=== PATIENT | male | born 1960 | race Caucasian/White ===

== ENCOUNTER 2021-10-04 07:26 | Day surgery (SDC) | payer BC ==
[2021-09-29 09:37] LABS: Absolute Lymphocytes (CBC) 1.1 K/uL (0.7-4.9); Basophils % 0.4 % (0-1.3); Hematocrit 41.1 % (39.6-49.0); MPV 6.8 fL (7.6-11.3); RBC Red Blood Cell Count 4.22 M/uL (4.33-5.43)
--- NOTE | 2021-09-29 09:41 | RAD REPORT ---
EXAM DESCRIPTION: Nick Noriega (2 Views)09/29/2021 9:36 am CLINICAL HISTORY: Preop for hernia repair. Hypertension COMPARISON: 2009 FINDINGS: The lungs appear clear of acute infiltrate. The heart is normal size IMPRESSION: No acute abnormalities displayed
[2021-09-29 09:54] LABS: Potassium 4.2 mmol/L (3.5-5.1)
[2021-09-29 11:23] LABS: Blood Morphology Comment NOT SEEN (NOT SEEN); Platelet Estimate DECR; White Blood Cell Scan OK (OK)
--- NOTE | 2021-09-29 13:11 | EKG ---
Test Date: 2021-09-29 Test Time: 08:11:29 Chief Librarian Branch: [facility] MEASUREMENT RESULTS: Intervals: Rate: 73 NM: 120 QRSD: 82 QT: 390 QTc: 429 [place]: P: 61 NM: 120 QRS: 42 T: -4 INTERPRETIVE STATEMENTS: Normal sinus rhythm Nonspecific T wave abnormality Abnormal ECG Compared to ECG 12/29/2009 23:05:02 T-wave abnormality now present Sinus bradycardia no longer present Myocardial infarct finding no longer present Electronically Signed On 09-29-21 13:10:16 CDT by Spencer Andino
[2021-10-04] MEDS ORDERED: Ringers Lactate 1,000 ML IV ONE (07:38)
[2021-10-04] MEDS ORDERED: CEFAZOLIN/NS 1gm 1 GM/50 ML BAG ONE (07:38)
[2021-10-04] MEDS ORDERED: LIDOCAINE 2% MPF 5 ML VIAL ONE (08:08)
[2021-10-04] MEDS ORDERED: propofoL 200 MG/20 ML VIAL IV ONE (08:08)
[2021-10-04] MEDS ORDERED: dexAMETHasone 10 MG/ML VIAL ONE ×2 (08:08→08:54)
[2021-10-04] MEDS ORDERED: KETOROLAC 30 MG/ML INJ ONE (08:08)
[2021-10-04] MEDS ORDERED: FENTANYL CITR 100 MCG/2 ML ONE (08:08)
[2021-10-04] MEDS ORDERED: ONDANSETRON 4 MG/2 ML VIAL ONE (08:09)
[2021-10-04] MEDS ORDERED: MIDAZOLAM HCL 2 MG/2 ML INJ ONE (08:09)
[2021-10-04] MEDS ORDERED: ROCURONIUM 50 MG/5 ML VIAL IV ONE (08:10)
[2021-10-04] MEDS ORDERED: BUPIVACAINE 0.5% PF 10 ML VIAL ONE ×2 (08:17→09:14)
[2021-10-04] MEDS ORDERED: BUPIVACAINE 0.25% PF 10 ML VIAL ONE (08:54)
[2021-10-04] MEDS ORDERED: NS 0.9% VIAL 10 ML ONE (08:57)
--- NOTE | 2021-10-04 09:24 | P.BOP ---
Preoperative diagnosis: incarcerated right inguinal hernia Postoperative diagnosis: same Primary procedure: Laparoscopic repair of incarcerated right inguinal hernia Ac/Dc Rewinder: AARON DUNNE ([employer]) Estimated blood loss: <10cc Specimen: none Findings: RIH Anesthesia: General Complications: None Implants: medium 3D mesh Transferred to: Recovery Room Condition: Good
[2021-10-04 09:55] VITALS: O2SAT 100
[2021-10-04 10:09] VITALS: TEMP 97.3
[2021-10-04 10:21] VITALS: BP 158/90
[2021-10-04] MEDS ORDERED: TRAMADOL 37.5mg/APAP 325mg PER TAB ONE (10:40)
== END 2021-10-04 10:54 | disposition home or self-care (01) ==
LOC: OR 07:26
PROVIDERS: ATTEND Surgery
PROC: 0YU54JZ Supplement Right Inguinal Region with Synthetic Substitute, Percutaneous Endoscopic Approach (ICD-10-PCS; principal; 2021-10-04 08:30)
DX: K40.30 Unilateral inguinal hernia, with obstruction, without gangrene, not specified as recurrent (principal); Z20.822 Contact with and (suspected) exposure to COVID-19
CPT/HCPCS: 93005; 85025; 80048; 36415; 71046; 49650; U0002; J2704; J2250; J3010; J1100 ×2; J0690; J7120; J2405

== ENCOUNTER 2024-10-22 20:41 | Observation (INO) | payer BC, OTHER ==
--- OUTSIDE RECORDS SUMMARY | 2024-10-22 20:45 | XMS REPORT | Clinical Summary ---
Author Name Unknown Organization [facility] Address [address] [place] [address] Care Team Providers Care City Maintenance Manager Name Role Phone Pant Svitlana Nogueira MD Unavailable Lydia Randall MD Primary Care Prov ider Juana HAYDEN MD, Jose Alberto Rm Unavailable [phone] Cindy Nj MD Unavailable [phone] Allergies Active Allergy Reactions Criticality Noted Date Comments Iodine Hives Low 04/27/2016 Itch and lip swelling Morphine Other (See Comments) Low 04/27/2016 Hallucinations Medications ibuprofen (ADVIL,MOTRIN) 200 mg tablet Take 2 tablets (400 mg) by mouth as needed. Active green tea leaf extract (Green Tea) 250 mg cap Take 1 capsule by mouth daily. Active omega 7-ukb-yrs-fish oil (Fish OiL) 1,000 mg (120 mg-180 mg) cap Take by mouth. Active tamsulosin (FLOMAX) 0.4 mg 24 hr capsuleIndicati ons:Benign prostatic hyperplasia TAKE 1 CAPSULE(0.4 MG) BY MOUTH DAILY 30 capsule 2 4 Active losartan (COZAAR) 25 mg tablet Take 1 tablet (25 mg) by mouth daily. 1 024 Discontinued multivit-minera ls/FA/lycopene (ONE-A-DAY MEN'S ORAL) Take by mouth daily. 024 Discontinued tamsulosin (FLOMAX) 0.4 mg 24 hr capsuleIndicati ons:Benign prostatic hyperplasia TAKE 1 CAPSULE(0.4 MG) BY MOUTH DAILY 30 capsule 2 3 023 Discontinued tamsulosin (FLOMAX) 0.4 mg 24 hr capsuleIndicati ons:Benign prostatic hyperplasia TAKE 1 CAPSULE(0.4 MG) BY MOUTH DAILY 30 capsule 2 3 024 Discontinued tamsulosin (FLOMAX) 0.4 mg 24 hr capsuleIndicati ons:Benign prostatic hyperplasia TAKE 1 CAPSULE(0.4 MG) BY MOUTH DAILY 30 capsule 2 4 024 Discontinued Active Problems Problem Noted Date Diagnosed Date Hairy cell leukemia 12/26/2022 Hairy cell leukemia (clinical) 01/12/2022 Encounters Date Type Department Care Team Description 06/07/2024 Refill [facility] [address] [place] [address], 8th Floor [place] [address] Natalie Horner PA Benign prostatic hyperplasia 05/13/2024 2:32 PM CDT - 05/13/2024 11:59 PM CDT Hospital Encounter [facility] [address] [place] [address], 2nd [place] [address] Lydia Randall MD Discharge Disposition: Home 05/13/2024 1:00 PM CDT Follow-Up Leukemia Center [address] [place] [address], 8th Floor [place] [address] Lydia Randall MD Hairy cell leukemia 05/13/2024 10:00 AM CDT - 05/13/2024 2:31 PM CDT Hospital Encounter Leukemia Center - [address], 8th [place] [address] Natalie Horner PA Hairy cell leukemia Discharge Disposition: Home 05/13/2024 9:30 AM CDT Consult [facility] - Dermatology [facility] Main Bldg, 9th [place] [address] Cindy Nj MD Multiple actinic keratoses (Primary Dx); Melanocytic nevus of trunk; Seborrheic keratosis; Hemangioma of skin and subcutaneous tissue 05/13/2024 Travel 02/21/2024 Orders Only Leukemia Center [address] [facility] Main Bldg, 8th [place] [address] Natalie Horner PA Hereditary hemochromatosis (Primary Dx); Hairy cell leukemia 02/21/2024 Refill Leukemia Center [address] [facility] Main Bldg, 8th [place] [address] Natalie Horner PA Benign prostatic hyperplasia 11/29/2023 Orders Only Leukemia Center [address] [facility] Main dg, 8th [place] [address] Lydia Randall MD 10/24/2023 Refill Leukemia Center [address] [facility] Main Bldg, 8th Floor [place] [address] Natalie Horner PA Benign prostatic hyperplasia after 10/23/2023 Immunizations Name Administration Dates Next Due Moderna SARS-CoV-2 Vaccination 11/25/2021,2020,02/12/2021 Zoster Recombinant 09/28/2022,08/12/2022 Surgical History Surgery Date Site/Laterality Comments COLONOSCOPY 11/27/2019 - 11/26/2020 5 polyps HERNIA REPAIR 09/27/2021 - 10/26/2021 inguinal Medical History Medical History Date Comments Hyperlipidemia 2000 Hearing loss 2010 both ear, left w orse than right Fatty liver 2021 Arthritis 2010 Family History Medical History Relation Name Comments Brain cancer Brother Lung cancer Father Adam Contreras Relation Name Status Comments Brother Alive Father Adam Contreras Social History Tobacco Use Types Packs/Day Years Used Date Smoking Tobacco: Never Smokeless Tobacco: Former Snuff, Chew Quit: 11/27/1991 Tobacco Cessation:Counseling Given: Not Answered Comments:Started at very young age. Quit around 27 y.o. Alcohol Use Standard Drinks/Week Comments Not Currently 0 (1 standard drink = 0.6 oz pur e alcohol) Social drinks Sex and Gender Information Value Date Recorded Sex Assigned at Not on file Legal Sex Male 8:51 AM [employer]NER [employer]UT[employer] Gender Identity Not on file Sexual Orientation Not on file Occupation Industry Job Start Date Job End Date [employer] Not on file Not on file Not on file Obstetrics History Last Filed Vital Signs Vital Sign Reading Time Taken Comments Blood Pressure 126/85 05/13/2024 9:16 AM CDT Pulse 89 05/13/2024 9:16 AM CDT Temperature - - Respiratory Rate 18 05/13/2024 9:16 AM CDT Oxygen Saturation 96% 05/13/2024 9:16 AM CDT Inhaled Oxygen Concentration - - Weight 95 kg (209 lb 7 oz) 05/13/2024 9:16 AM CD T Height 172.7 cm (5' 8") 05/13/2024 9:16 AM CDT Body Mass Index 31.84 05/13/2024 9:16 AM CDT Plan of Treatment Upcoming Encounters Date Type Department Care Team (Late st Contact Info) Description 05/12/2025 10:30 AM CDT Follow-Up [facility] - Dermatology [address] [place] [address], 9th [place] [address] Cindy Nj MD [address] [place] [phone] [email or web address] 05/12/2025 11:30 AM CDT Appointment Diagnostic [facility] Center [address] [place] [address] Main [facility], [place] [address] Natalie Horner PA [address] [place] [phone] [email or web address] 05/12/2025 1:00 PM CDT Follow-Up Leukemia Center [address] [place] [address], 8th [place] [address] Lydia Randall MD [facility] [place] [address] [email or web address] Health Maintenance Due Date Last Done Comments Pneumococcal Vaccine: Pediat rics (0 to 5 Years) and At-Risk Patients (6 to 64 Years) (1 of 2 - PCV) 1968 COVID-19 Vaccine ( season) 2024 11/25/2021, 03/12/2021, 02/12/2021 Influenza Vaccine (#1) 2024 Procedures Procedure Name Priority Date/Time Associated Diagnosis Comments HISTORICAL ABORH Routine 05/13/2024 11:3 1 AM CDT Hairy cell leukemia FERRITIN Add-On 05/13/2024 10:26 AM CDT Hairy cell leukemia IRON LEVEL Add-On 05/13/2024 10:26 AM CDT Hairy cell leukemia TRANSFERRIN Add-On 05/13/2024 10:26 AM CDT Hairy cell leukemia .CBC Routine 05/13/2024 10:26 AM CDT Hairy cell leukemia COMPLETE BLOOD COUNT W/ DIFFERENTIAL Routine 05/13/2024 10:26 AM CDT Hairy cell leukemia TYPE AND SCREEN Routine 05/13/2024 10:26 AM CDT Hairy cell leukemia INTERLEUKIN 2 RECEPTOR (IL2R) Routine 05/13/2024 10:26 AM CDT Hairy cell leukemia IMMUNOGLOBULIN G Routine 05/13/2024 10:2 6 AM CDT Hairy cell leukemia IMMUNOGLOBULIN M Routine 05/13/2024 10:2 6 AM CDT Hairy cell leukemia IMMUNOGLOBULIN A Routine 05/13/2024 10:2 6 AM CDT Hairy cell leukemia MAGNESIUM LEVEL Routine 05/13/2024 10:26 AM CDT Hairy cell leukemia ELECTROLYTE PANEL Routine 05/13/2024 10: 26 AM CDT Hairy cell leukemia ALANINE AMINOTRANSFERASE Routine 024 10:26 AM CDT Hairy cell leukemia LACTATE DEHYDROGENASE Routine 05/13/2024 10:26 AM CDT Hairy cell leukemia ALKALINE PHOSPHATASE Routine 05/13/2024 10:26 AM CDT Hairy cell leukemia FRACTIONATED BILIRUBIN Routine 10:26 AM CDT Hairy cell leukemia URIC ACID Routine 05/13/2024 10:26 AM CDT Hairy cell leukemia CREATININE Routine 05/13/2024 10:26 AM CDT Hairy cell leukemia BLOOD UREA NITROGEN Routine 05/13/2024 1 0:26 AM CDT Hairy cell leukemia GLUCOSE, RANDOM Routine 05/13/2024 10:26 AM CDT Hairy cell leukemia PHOSPHORUS LEVEL Routine 05/13/2024 10:2 6 AM CDT Hairy cell leukemia CALCIUM LEVEL Routine 05/13/2024 10:26 AM CDT Hairy cell leukemia ALBUMIN LEVEL Routine 05/13/2024 10:26 AM CDT Hairy cell leukemia TOTAL PROTEIN Routine 05/13/2024 10:26 AM CDT Hairy cell leukemia after 10/23/2023 Results * Historical ABORh (05/13/2024 11:31 AM CDT) ABORh AB POS 05/13/2024 11:32 AM CDT [facility] Blood Peripheral blood specimen / Unknown 05/13/2024 11:31 AM CDT 05/13/2024 11:31 AM CDT Natalie MESSER BLOOD BANK TEST ORDERABLES Fin al Result [facility] [address] [place] [address] [id number] [place] [address] * Glucose, Random (05/13/2024 10:26 AM CDT) Glucose Random 111 70 - 199 mg/dL 05/13/2024 11:28 AM CDT [facility] Blood Venipuncture / Unknown 05/13/2024 10:26 AM CDT 05/13/2024 10:42 AM CDT Narrative [facility] - 05/13/2024 11:28 AM CDT Effective 06/22/16, the glucose reference intervals have been updated based on [place] Diabetes [employer] guidelines (Standards of Medical Care in Diabetes 2016. Diabetes Care 2016; 39: S13-S22). Fasting blood glucose: Normal: 70-99 mg/dL Impaired fasting glucose (increased risk for diabetes or pre-diabetes): 100-125 mg/dL Diabetes mellitus: >/=126 mg/dL Random blood glucose: Normal: 70-199 mg/dL Note: Random glucose >100 mg/dL is associated with increased risk for diabetes Natalie MESSER LAB BLOOD ORDERABLES Final Res ult [facility] Unless otherwise noted, all lab tests performed by: Division of Pathology and Laboratory Medicine [address] [place] [phone] * .CBC (05/13/2024 10:26 AM CDT) White Blood Cell 6.2 4.1 - 10.5 K/uL 05/13/2024 11:05 AM CDT [facility] Red Blood Cell 4.91 4.30 - 6.04 M/uL 05/13/2024 11:05 AM [facility] Hemoglobin 15.3 13.3 - 17.4 g/dL 05/13/2024 11:05 AM [facility] Hematocrit 44.4 39.5 - 51.8 % 05/13/2024 11:05 AM [facility] Mean Cell Volume 90 82 - 99 fL 05/13/20 11:05 AM [facility] Mean Cell Hemoglobin 31.2 26.6 - 33.2 pg 05/13/2024 11:05 AM [facility] Mean Cell Hemoglobin Concentration 34.5 31.1 - 35.2 g/dL 05/13/2024 11:05 AM [facility] RDW-SD 39.9 37.5 - 49.7 fL 05/13/2024 11:05 AM [facility] Red Cell Diameter Width 12.2 11.6 - 15.5 % 05/13/2024 11:05 AM [facility] Platelet 171 160 - 397 K/uL 05/13/2024 11:05 AM [facility] Mean Platelet Volume 9.3 9.1 - 12.6 fL 05/13/2024 11:05 AM [facility] INRBC 0.0 0.0 - 0.1 /100 WBC 05/13/2024 11:05 AM [facility] Comment: The INRBC (instrument NRBC) value reflects the enumeration of nucleated red blood cells contained in a 200uL sample of whole blood analyzed by the instrument. This value may differ from the NRBC value reported in a manual differential, which is based on a 100 cell differential. Neutrophil % 60.9 43.2 - 72.7 % 05/13/2024 11:05 AM [facility] Lymphocyte % 25.0 16.8 - 46.2 % 05/13/2024 11:05 AM [facility] Monocyte % 9.8 5.1 - 12.5 % 05/13/2024 11:05 AM [facility] Eosinophil % 3.2 0.4 - 6.3 % 05/13/2024 11:05 AM CDT [facility] Basophil % 0.6 0.2 - 1.4 % 05/13/2024 11:05 AM CDT [facility] IGRE % 0.5 0.1 - 1.5 % 05/13/2024 11:05 AM CDT [facility] Comment:The IGRE% includes M etamyelocytes, Myelocytes and Promyelocytes. Neutrophil Abs 3.77 1.95 - 7.25 K/uL 05/13/2024 11:05 AM CDT [facility] Lymphocyte Abs 1.55 1.01 - 3.24 K/uL 05/13/2024 11:05 AM CDT [facility] Monocyte Abs 0.61 0.24 - 0.85 K/uL 05/13/2024 11:05 AM CDT [facility] Eosinophil Abs 0.20 0.02 - 0.50 K/uL 05/13/2024 11:05 AM CDT [facility] Basophil Abs 0.04 0.02 - 0.09 K/uL 05/13/2024 11:05 AM CDT [facility] IG Abs 0.03 0.01 - 0.12 K/uL 05/13/2024 11:05 AM CDT [facility] Blood Venipuncture / Unknown 05/13/2024 10:26 AM CDT 05/13/2024 10:42 AM CDT us Natalie MESSER LAB BLOOD ORDERABLES Final Res ult [facility] Unless otherwise noted, all lab tests performed by: Division of Pathology and Laboratory Medicine [address] [place] [phone] * Fractionated Bilirubin (05/13/2024 10:26 AM CDT) Bilirubin Direct 0.2 0.0 - 0.3 mg/dL 05/13/2024 11:28 AM CDT [facility] Comment:Indocyanine Green (I CG) may cause falsely elevated bilirubin results. Total and direct bilirubin must not be measured from samples containing indocyanine green. Bilirubin Indirect 0.7 0.0 - 0.9 mg/dL 05/13/2024 11:28 AM CDT [facility] Bilirubin Total 0.9 0.0 - 1.2 mg/dL 05/13/2024 11:28 AM CDT [facility] Comment:Indocyanine Green (I CG) may cause falsely elevated bilirubin results. Total and direct bilirubin must not be measured from samples containing indocyanine green. False elevation of total bilirubin can be seen in patients with IgG concentrations above 28 g/L. Blood Venipuncture / Unknown 05/13/2024 10:26 AM CDT 05/13/2024 10:42 AM CDT Natalie MESSER LAB BLOOD ORDERABLES Final Res ult [facility] Unless otherwise noted, all lab tests performed by: Division of Pathology and Laboratory Medicine [address] [place] [phone] * Interleukin 2 Receptor (05/13/2024 10:26 AM CDT) [facility] [place] 2 Recp(CD25) [facility] 380.9 175.3 - 858.2 pg/mL 05/17/2024 7:55 AM CDT [facility] CINDI Comment: INTERPRETIVE INFORMATION: Cytokines Results are used to understand the pathophysiology of immune, infectious, or inflammatory disorders, or may be used for research purposes. This test was developed and its performance characteristics determined by [facility]. It has not been cleared or approved by the [place] Food and Drug Administration. This test was performed in a CLIA certified laboratory and is intended for clinical purposes. Test Performed by: [facility] [address] [place] [address] Blood Venipuncture / Unknown 05/13/2024 10:26 AM CDT 05/13/2024 10:42 AM CDT Natalie MESSER LAB BLOOD ORDERABLES Final Res ult [facility] CINDI * Type and Screen (05/13/2024 10:26 AM CDT) Pathologist [facility] ABORh AB POS 05/13/2024 10:10 AM CDT [facility] ABSC Negative 05/13/2024 10:10 AM CDT [facility] Clot Expiration 05/16/2024 23:59 05/13/2024 10:10 AM CDT [facility] Historical Record Check Complete 05/13/2024 10:10 AM CDT [facility] Blood Venipuncture / Unknown 05/13/2024 10:26 AM CDT 05/13/2024 10:42 AM CDT us Natalie MESSER BLOOD BANK TEST ORDERABLES Fin al Result [facility] [address] [place] [address] B2.4400 [place] [address] * Uric Acid (05/13/2024 10:26 AM CDT) Uric Acid 6.6 3.4 - 7.0 mg/dL 05/13/2024 11:28 AM CDT [facility] Blood Venipuncture / Unknown 05/13/2024 10:26 AM CDT 05/13/2024 10:42 AM CDT us Natalie MESSER LAB BLOOD ORDERABLES Final Res ult [facility] Unless otherwise noted, all lab tests performed by: Division of Pathology and Laboratory Medicine [address] [place] [phone] * BUN (05/13/2024 10:26 AM CDT) BUN 16 6 - 23 mg/dL 05/13/2024 11:28 AM CDT [facility] Blood Venipuncture / Unknown 05/13/2024 10:26 AM CDT 05/13/2024 10:42 AM CDT us Natalie MESSER LAB BLOOD ORDERABLES Final Res ult [facility] Unless otherwise noted, all lab tests performed by: Division of Pathology and Laboratory Medicine [address] [place] [phone] * Transferrin with TIBC (05/13/2024 10:26 AM CDT) Pathologist [facility] Transferrin 246 200 - 360 mg/dL 05/13/2024 2:12 PM CDT [facility] Total Iron Binding Capacity 344 250 - 450 mcg/dL 05/13/2024 2:12 PM CDT [facility] Blood Venipuncture / Unknown 05/13/2024 10:26 AM CDT 05/13/2024 10:42 AM CDT us Natalie MESSER LAB BLOOD ORDERABLES Final Res ult Performing Organization Address [facility]/ZIP Co de Phone Number [facility] Unless otherwise noted, all lab tests performed by: Division of Pathology and Laboratory Medicine [address] [place] [phone] * Alanine Aminotransferase (05/13/2024 10:26 AM CDT) Pathologist [facility] ALT 36 <=41 U/L 05/13/2024 11:28 AM CDT [facility] Blood Venipuncture / Unknown 05/13/2024 10:26 AM CDT 05/13/2024 10:42 AM CDT us Natalie MESSER LAB BLOOD ORDERABLES Final Res ult [facility] Unless otherwise noted, all lab tests performed by: Division of Pathology and Laboratory Medicine [address] [place] [phone] * Total Protein (05/13/2024 10:26 AM CDT) Pathologist [facility] Tot Protein 6.9 6.4 - 8.3 gm/dL 05/13/2024 11:28 AM CDT [facility] Blood Venipuncture / Unknown 05/13/2024 10:26 AM CDT 05/13/2024 10:42 AM CDT Narrative [facility] - 05/13/2024 11:28 AM CDT Reference range established based on adult population Natalie MESSER LAB BLOOD ORDERABLES Final Res ult [facility] Unless otherwise noted, all lab tests performed by: Division of Pathology and Laboratory Medicine [address] [place] [phone] * Phosphorus Level (05/13/2024 10:26 AM CDT) Phosphorus Level 3.0 2.5 - 4.5 mg/dL 05/13/2024 11:28 AM CDT [facility] Blood Venipuncture / Unknown 05/13/2024 10:26 AM CDT 05/13/2024 10:42 AM CDT Natalie MESSER LAB BLOOD ORDERABLES Final Res ult Performing Organization Address [facility] de Phone Number [facility] Unless otherwise noted, all lab tests performed by: Division of Pathology and Laboratory Medicine [address] [place] [phone] * Alkaline Phosphatase (05/13/2024 10:26 AM CDT) Alkaline Phosphatase 77 40 - 129 U/L 05/13/2024 11:28 AM CDT [facility] Blood Venipuncture / Unknown 05/13/2024 10:26 AM CDT 05/13/2024 10:42 AM CDT Natalie MESSER LAB BLOOD ORDERABLES Final Res ult Performing Organization Address City/[facility] Co de Phone Number [facility] Unless otherwise noted, all lab tests performed by: Division of Pathology and Laboratory Medicine [address] [place] [phone] * Magnesium Level (05/13/2024 10:26 AM CDT) [facility] Magnesium Level 2.2 1.6 - 2.6 mg/dL 05/13/2024 11:28 AM CDT [facility] Blood Venipuncture / Unknown 05/13/2024 10:26 AM CDT 05/13/2024 10:42 AM CDT Natalie MESSER LAB BLOOD ORDERABLES Final Res ult Performing Organization Address [facility] de Phone Number [facility] Unless otherwise noted, all lab tests performed by: Division of Pathology and Laboratory Medicine [address] [place] [phone] * LDH (05/13/2024 10:26 AM CDT) [facility] LDH 185 135 - 225 U/L 05/13/2024 11:38 AM CDT [facility] Blood Venipuncture / Unknown 05/13/2024 10:26 AM CDT 05/13/2024 10:42 AM CDT Narrative [facility] - 05/13/2024 11:38 AM CDT Results greater than 1651 U/L may not be reliable due to matrix effect with extended dilution as it exceeds the avionics systems engineer's recommended limit. Caution should be exercised when interpreting such values and done in conjunction with clinical context. Natalie MESSER LAB BLOOD ORDERABLES Final Res ult Performing Organization Address [facility] de Phone Number [facility] Unless otherwise noted, all lab tests performed by: Division of Pathology and Laboratory Medicine [address] [place] [phone] * Iron Level (05/13/2024 10:26 AM CDT) [facility] Iron Level 119 59 - 158 mcg/dL 05/13/2024 2:12 PM CDT [facility] Is patient fasting? 05/13/2024 2:12 PM CDT [facility] Blood Venipuncture / Unknown 05/13/2024 10:26 AM CDT 05/13/2024 10:42 AM CDT Natalie MESSER LAB BLOOD ORDERABLES Final Res ult Performing Organization Address City/[facility] Co de Phone Number [facility] Unless otherwise noted, all lab tests performed by: Division of Pathology and Laboratory Medicine [address] [place] [phone] * IgA (05/13/2024 10:26 AM CDT) Pathologist [facility] IgA 157.0 85.0 - 499.0 mg/dL 05/13/2024 2:58 PM CDT [facility] Blood Venipuncture / Unknown 05/13/2024 10:26 AM CDT 05/13/2024 10:42 AM CDT Natalie MESSER LAB BLOOD ORDERABLES Final Res ult Performing Organization Address [facility] de Phone Number [facility] Unless otherwise noted, all lab tests performed by: Division of Pathology and Laboratory Medicine [address] [place] [phone] * IgM (05/13/2024 10:26 AM CDT) Pathologist [facility] IgM 103.0 35.0 - 242.0 mg/dL 05/13/2024 2:58 PM CDT [facility] Blood Venipuncture / Unknown 05/13/2024 10:26 AM CDT 05/13/2024 10:42 AM CDT Natalie MESSER LAB BLOOD ORDERABLES Final Res ult Performing Organization Address City/[facility] Co de Phone Number [facility] Unless otherwise noted, all lab tests performed by: Division of Pathology and Laboratory Medicine [address] [place] [phone] * IgG (05/13/2024 10:26 AM CDT) Pathologist [facility] IgG 1,050.0 610.0 - 1,616.0 mg/dL 05/13/2024 2:58 PM CDT [facility] Blood Venipuncture / Unknown 05/13/2024 10:26 AM CDT 05/13/2024 10:42 AM CDT Natalie MESSER LAB BLOOD ORDERABLES Final Res ult [facility] Unless otherwise noted, all lab tests performed by: Division of Pathology and Laboratory Medicine [address] [place] [phone] * Ferritin Level (05/13/2024 10:26 AM CDT) Ferritin Level 248 30 - 400 ng/mL 05/13/2024 2:12 PM CDT [facility] Blood Venipuncture / Unknown 05/13/2024 10:26 AM CDT 05/13/2024 10:42 AM CDT Narrative [facility] - 05/13/2024 2:12 PM CDT Reference range established for age 20 - 60 years us Natalie MESSER LAB BLOOD ORDERABLES Final Res ult Performing Organization Address City/[facility] Co de Phone Number [facility] Unless otherwise noted, all lab tests performed by: Division of Pathology and Laboratory Medicine [address] [place] [id number] * Creatinine (05/13/2024 10:26 AM CDT) Creatinine 0.88 0.67 - 1.17 mg/dL 05/13/2024 11:28 AM CDT [facility] eGFR 98 >=60 mL/min/1.7 3 sq. m 05/13/2024 11:28 AM CDT [facility] Comment: The eGFRcr is calculated with the 2020 CKD-EPI creatinine equation using creatinine, patient's age, and sex for adults 18 years of age and older. Other factors, especially muscle mass, may affect accuracy and need to be considered. According to the Kidney Disease: Improving Global Outcomes (KDIGO) CKD Work Group 2012 Clinical Practice Guideline, chronic kidney disease (CKD) is defined as the abnormalities of kidney structure or function, present for more than 3 months, with implications for health. CKD should be classified by cause, GFR category, and albuminuria category. KDIGO guidelines provide the following GFR categories. Stage / Description / GFR mL/min/1.73 m2: G1* / Normal or high / >= 90 G2* / Mildly decreased / 60-89 G3a / Mildly to moderately decreased / 45-59 G3b / Moderately to severely decreased / 30-44 G4 / Severely decreased / 15-29 G5 / Kidney failure / <15 *In the absence of evidence of kidney damage, neither G1 nor G2 fulfill criteria for CKD. Blood Venipuncture / Unknown 05/13/2024 10:26 AM CDT 05/13/2024 10:42 AM CDT Natalie MESSER LAB BLOOD ORDERABLES Final Res ult Performing Organization Address City/[facility]/ZIP Co de Phone Number [facility] Unless otherwise noted, all lab tests performed by: Division of Pathology and Laboratory Medicine [address] [place] [phone] * Calcium Level (05/13/2024 10:26 AM CDT) Calcium Level Total 9.1 8.2 - 10.2 mg/dL 05/13/2024 11:28 AM CDT [facility] Blood Venipuncture / Unknown 05/13/2024 10:26 AM CDT 05/13/2024 10:42 AM CDT Natalie MESSER LAB BLOOD ORDERABLES Final Res ult [facility] Unless otherwise noted, all lab tests performed by: Division of Pathology and Laboratory Medicine [address] [place] [id number] * Albumin Level (05/13/2024 10:26 AM CDT) Albumin Level 4.2 3.5 - 5.2 gm/dL 05/13/2024 11:28 AM CDT [facility] Blood Venipuncture / Unknown 05/13/2024 10:26 AM CDT 05/13/2024 10:42 AM CDT us Natalie MESSER LAB BLOOD ORDERABLES Final Res ult [facility] Unless otherwise noted, all lab tests performed by: Division of Pathology and Laboratory Medicine [address] [place] [id number] * Electrolyte Panel (05/13/2024 10:26 AM CDT) Sodium Level 138 136 - 145 mmol/L 05/13/2024 11:28 AM CDT [facility] Potassium Level 4.4 3.4 - 4.5 mmol/L 05/13/2024 11:28 AM CDT [facility] Chloride 104 98 - 107 mmol/L 05/13/2024 11:28 AM CDT [facility] CO2 28 22 - 29 mmol/L 05/13/2024 11:28 AM CDT [facility] Anion Gap 6 4 - 14 mmol/L 05/13/2024 11:28 AM CDT [facility] Blood Venipuncture / Unknown 05/13/2024 10:26 AM CDT 05/13/2024 10:42 AM CDT Natalie MESSER LAB BLOOD ORDERABLES Final Res ult Performing Organization Address City/[facility]/ZIP Co de Phone Number [facility] Unless otherwise noted, all lab tests performed by: Division of Pathology and Laboratory Medicine [address] [place] [phone] after 10/23/2023 Insurance BCBS PPO POS OUT OF STATE GENERIC AETNA HMO [facility] PPO POS OUT OF STATE GENERIC AETNA HMO Care Teams City Maintenance Manager Relationship Specialty Start Date End Date Svitlana Ellis MD [address] [address] [email or web address] PCP - External Follow Up A Hematology 12/31/21 Lydia Randall MD [address] [place] [phone] [email or web address] PCP - General Leukemia 12/31/21 Jose Alberto Arias IV, MD [address] [place] [id number] [email or web address] Consulting Physician Urology 08/12/22 Cindy Nj MD [address] [place] [phone] [email or web address] Consulting Physician Dermatology 05/13/24
[2024-10-22 21:26] LABS: Absolute Eosinophils 0.1 K/uL (0-0.5); Absolute Lymphocytes (CBC) 1.1 K/uL (0.7-4.9); Absolute Monocytes 0.2 K/uL (0.1-1.3); Absolute Neutrophil 2.8 K/uL (1.8-8.0); Basophils % 0.5 % (0-1.3); Eosinophils % 3.5 % (0-4.4); Hematocrit 44.3 % (39.6-49.0); Lymphocytes % 25.1 % (15.3-44.8); MCH 30.8 pg (27.0-35.0); MCHC 33.8 g/dL (32.0-36.0); MCV 90.9 fL (80-100); MPV 7.3 fL (7.6-11.3); Monocytes % 5.3 % (3.3-12.3); Neutrophils % 65.6 % (41.7-73.7); Nucleated Red Blood Cells % 0.2 % (0-0); Platelets 175 thou/uL (152-406); RBC Red Blood Cell Count 4.88 M/uL (4.33-5.43); Red Cell Distribution Width 13.2 % (12.1-15.2)
[2024-10-22 21:50] LABS: Anion Gap 9.1 mEq/L (5.0-15.0); Potassium 3.1 mEq/L (3.5-5.1); Troponin High Sensitivity 51.8 pg/mL (<58.9)
--- NOTE | 2024-10-22 21:50 | RAD REPORT ---
Procedure: Chest Single View HISTORY: Chest pain COMPARISON: 2020 FINDINGS: The lungs appear clear of acute infiltrate. No significant pleural effusion noted. The heart is normal size. IMPRESSION: No acute abnormality is displayed.
[2024-10-22] MEDS ORDERED: POTASSIUM CL SA 10 MEQ TAB PO ONE (22:18)
[2024-10-22] MEDS ORDERED: CLOPIDOGREL 75 MG TABLET ONE (23:14)
[2024-10-22] MEDS ORDERED: ASPIRIN 81 MG CHEWABLE TABLET ONE (23:14)
[2024-10-22] MEDS ORDERED: NITROGLYCERIN 1 GM PKT TD ONE (23:14)
--- NOTE | 2024-10-22 23:53 | EDPHYS ---
Physician Documentation [facility] Name: Tevin Contreras Age: 64 yrs Sex: Male : 1960 Arrival Date: 10/22/2024 Time: 20:41 Bed 16 Private MD: ED Physician Orlando Tariq HPI: 10/22 23:03 This 64 yrs old Male presents to ER via Ambulatory with complaints of Chest Pain, Chest bo1 Tightness. 23:03 The patient or guardian reports chest pain that is located primarily in the substernal bo1 area. 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 The pain does not radiate. Associated signs and symptoms: Pertinent positives: shortness of breath. The chest pain is described as a heaviness, squeezing. Duration: The patient or guardian reports multiple episodes, Intermittent and present. Pt has recently stopped his HBP med but restarted it 2 days ago. Historical: - Allergies: 20:48 No Known Allergies; ha1 - PMHx: 20:48 Hypertensive disorder; Leukemia; ha1 - PSHx: 20:48 LEFT ARM SURGERY; ha1 - Immunization history:: Adult Immunizations up to date. - Infectious Disease History:: Denies. - Social history:: Smoking status: Patient denies any tobacco usage or history of. ROS: 23:06 Constitutional: Negative for fever, chills, and weight loss bo1 23:06 Neck: Negative for pain at rest, 23:06 Cardiovascular: Positive for chest pain, 23:06 Respiratory: Positive for shortness of breath, 23:06 Abdomen/GI: Negative for abdominal pain, nausea and vomiting, 23:06 Back: Negative for pain at rest, 23:06 MS/extremity: Negative for pain, swelling, 23:06 Skin: Negative for diaphoresis, 23:06 All other systems are negative, Exam: 23:08 Constitutional: This is a well developed, well nourished patient who is awake, alert, bo1 and in no acute distress. 23:08 Constitutional: The patient appears alert, awake, comfortable, non-toxic, 23:08 Eyes: Sclera: icterus, is not appreciated, 23:08 Neck: External neck: is normal, no acute changes, 23:08 Chest/axilla: Inspection: normal, no acute changes, 23:08 Cardiovascular: Rate: normal, Rhythm: regular, Pulses: no pulse deficits are appreciated, 23:08 ECG was reviewed by the Attending Physician. Vital Signs: 20:48 BP 190 / 97; Pulse 86; Resp 19 S; Temp 98.1(O); Pulse Ox 95% on R/A; Weight 104.33 kg; ha1 Height 5 ft. 9 in. ; 21:00 BP 163 / 83; Pulse 83; Resp 17; Pulse Ox 95% on R/A; rg5 22:00 BP 138 / 68; Pulse 82; Resp 17; Pulse Ox 95% on R/A; rg5 23:00 BP 143 / 73; Pulse 80; Resp 17; Pulse Ox 97% on R/A; rg5 10/23 00:41 BP 122 / 69; Pulse 86; Resp 16; Temp 97.8(O); Pulse Ox 97% on R/A; rg5 10/22 20:48 Body Mass Index 33.96 (104.33 kg, 175.26 cm) ha1 MDM: 10/22 20:58 Medical Screening Exam initiated bo1 23:11 Differential diagnosis: coronary artery disease gastritis, stable angina. Consideration bo1 of Admission/Observation Patient was admitted/placed on observation. ED course: In depth discussion, due to benjamínndo of nichole that pt should be obs admit and consult with cardiology hotel lobby concierge. 23:52 The patient was given aspirin in the Emergency Department. Data reviewed: vital signs, bo1 lab test result(s), EKG, radiologic studies, plain films. 10/22 20:59 Order name: Basic Metabolic Panel; Complete Time: 21:54 bo1 10/22 20:59 Order name: CBC with Diff; Complete Time: 21:54 bo1 10/22 20:59 Order name: Troponin HS; Complete Time: 21:54 bo1 10/23 01:31 Order name: Comprehensive Metabolic Panel; Complete Time: 08:05 EDPA 10/23 01:31 Order name: Creatine Phosphokinase; Complete Time: 08:05 EDPA 10/23 01:31 Order name: Lactate w/ 2H reflex if indic.; Complete Time: 08:05 EDPA 10/23 01:31 Order name: Liver (Hepatic) Function; Complete Time: 08:05 EDPA 10/23 01:31 Order name: Magnesium; Complete Time: 08:05 [facility] 10/23 01:31 Order name: NT PRO-BNP; Complete Time: 08:05 [facility] 10/23 01:31 Order name: Phosphorus; Complete Time: 08:05 [facility] 10/23 01:31 Order name: Thyroid Stimulating Hormone; Complete Time: 08:05 [facility] 10/23 01:31 Order name: Urinalysis w/ reflexes [facility] 10/23 01:31 Order name: Lipid Profile [facility] 10/23 01:31 Order name: Lipid Profile [facility] 10/23 01:31 Order name: Troponin High Sensitivity [facility] 10/23 01:31 Order name: Troponin High Sensitivity [facility] 10/23 01:31 Order name: Troponin High Sensitivity [facility] 10/23 01:31 Order name: Troponin High Sensitivity [facility] 10/22 20:59 Order name: XRAY Chest (1 view); Complete Time: 21:54 [facility] 10/23 01:31 Order name: Echo with Doppler [facility] 10/22 20:59 Order name: EKG; Complete Time: 21:00 [facility] 10/23 01:31 Order name: CONS Physician Consult [facility] 10/22 20:59 Order name: Cardiac monitoring; Complete Time: 21:17 [facility] 10/22 20:59 Order name: EKG - Nurse/Tech; Complete Time: 21:17 [facility] 10/22 20:59 Order name: IV Saline Lock; Complete Time: 21:17 [facility] 10/22 20:59 Order name: Labs collected and sent; Complete Time: 21:17 [facility] 10/22 20:59 Order name: O2 Per Protocol; Complete Time: 21:17 [facility] 10/22 20:59 Order name: O2 Sat Monitoring; Complete Time: 21:17 bo1 EC:08 Rate is 90 beats/min. Rhythm is regular. QRS [place] is Normal. SD interval is normal. QRS bo1 interval is normal. QT interval is normal. No Q waves. T waves are Normal. No ST changes noted. Clinical impression: Normal ECG. Interpreted by me. Reviewed by me. Administered Medications: :27 Drug: Potassium Chloride PO 20 mEq PO once Route: PO; rg5 22:55 Follow up: Response: No adverse reaction [facility] 23:00 Drug: Clopidogrel PO 300 mg PO once Route: PO; [facility] 10/23 00:13 Follow up: Response: No adverse reaction [facility] 10/22 23:20 Drug: Aspirin PO Chewable Tablet 324 mg PO once; 81 mg tablets x 4 Route: PO; rg5 10/23 00:13 Follow up: Response: No adverse reaction [facility] 10/22 23:21 Drug: Nitroglycerin Transdermal Ointment 2 % 1 inches Transdermal once Route: rg5 Transdermal; Site: anterior chest wall; Disposition Summary: 10/22/24 23:52 Hospitalization Ordered Notes: Hospitalization Status: Observation bo1 Provider: Timmy Disla boHomar Condition: Stable bo1 Problem: new bo1 Symptoms: have improved bo1 Bed/Room Type: Standard [facility] Location: Telemetry/MedSurg (observation)(10/23/24 07:16) eb Room Assignment: [facility](10/23/24 07:16) Diagnosis - Chest pain, unspecified bo1 - Hypokalemia bo1 - Atherosclerotic heart disease of [place] coronary artery with angina pectoris bo1 Forms: - Medication Reconciliation Form bo1 - SBAR form bo1 - Leadership Thank You Letter bo1 Signatures: Dispatcher [employer] Alyssa Head, RN RN Iza Chaves Heidy, RN RN ha1 Orlando Tariq MD MD bo1 Sam Gaffney RN RN rg5 Corrections: (The following items were deleted from the chart) 10/23 01:01 10/22 23:52 Telemetry/MedSurg (observation) [facility] 10/23 01:01 10/22 23:52 [facility] 10/23 07:16 01:01 [facility] ER [facility] eb [facility]
--- NOTE | 2024-10-22 23:53 | ER ---
Nurse's Notes [facility] Name: Tevin Contreras Age: 64 yrs Sex: Male : 1960 Arrival Date: 10/22/2024 Time: 20:41 Bed 16 Private MD: Diagnosis: Chest pain, unspecified;Hypokalemia;Atherosclerotic heart disease of [place] coronary artery with angina pectoris Presentation: 10/22 20:48 Chief complaint: Patient states: CHEST PAIN FOR THE PAST TWO DAYS, NAUSEA. ha1 20:48 Coronavirus screen: Vaccine status: Patient reports being unvaccinated. Ebola Screen: ha1 No symptoms or risks identified at this time. Initial Sepsis Screen: Does the patient meet any 2 criteria? No. Patient's initial sepsis screen is negative. Does the patient have a suspected source of infection? No. Patient's initial sepsis screen is negative. Risk Assessment: Do you want to hurt yourself or someone else? Patient reports no desire to harm self or others. Onset of symptoms was October 22, 2024. 20:48 Method Of Arrival: Ambulatory 1 20:48 Acuity: PRANEETH 2 ha1 Triage Assessment: 20:48 General: Appears uncomfortable, Behavior is cooperative. Pain: Complains of pain in ha1 chest Pain currently is 8 out of 10 on a pain scale. Quality of pain is described as heavy, pressure, Pain began 2-3 days ago. Neuro: Level of Consciousness is awake, alert, obeys commands, Oriented to person, place, time, situation. Cardiovascular: Reports chest pain, Capillary refill < 3 seconds Patient's skin is warm and dry. Respiratory: Airway is patent Respiratory effort is even, unlabored, Respiratory pattern is regular, symmetrical. GI: Abdomen is round non-distended, obese, Reports nausea. Historical: - Allergies: 20:48 No Known Allergies; ha1 - PMHx: 20:48 Hypertensive disorder; Leukemia; ha1 - PSHx: 20:48 LEFT ARM SURGERY; ha1 - Immunization history:: Adult Immunizations up to date. - Infectious Disease History:: Denies. - Social history:: Smoking status: Patient denies any tobacco usage or history of. Screenin:00 [facility] ED Fall Risk Assessment (Adult) History of falling in the last 3 months, rg5 including since admission No falls in past 3 months (0 pts) Confusion or Disorientation No (0 pts) Intoxicated or Sedated No (0 pts) Impaired Gait No (0 pts) Mobility Assist Device Used No (0 pt) Altered Elimination No (0 pt) Score/Fall Risk Level 0 - 2 = Low Risk Oriented to surroundings, Maintained a safe environment, Hourly rounding (assess needs \T\ fall precautionary measures) done. Abuse screen: Denies threats or abuse. Nutritional screening: No deficits noted. Tuberculosis screening: No symptoms or risk factors identified. Assessment: 21:00 General: Appears in no apparent distress. comfortable, Behavior is calm, cooperative. rg5 Pain: Complains of pain in chest Pain does not radiate. Pain currently is 5 out of 10 on a pain scale. Quality of pain is described as dull. Neuro: Level of Consciousness is awake, alert, obeys commands, Oriented to person, place, time. Cardiovascular: Reports chest pain. Respiratory: Airway is patent Trachea midline Respiratory effort is even, unlabored, Respiratory pattern is regular. GI: Abdomen is round non-distended, Abd is soft and non tender. : No signs and/or symptoms were reported regarding the genitourinary system. EENT: No deficits noted. Derm: Skin is intact, Skin is dry, Skin is normal. Musculoskeletal: Circulation, motion, and sensation intact. Range of motion: intact in all extremities. 22:00 Reassessment: No changes from previously documented assessment. Patient and/or family rg5 updated on plan of care and expected duration. Pain level reassessed. Patient is alert, oriented x 3, equal unlabored respirations, skin warm/dry/pink. 23:08 Reassessment: No changes from previously documented assessment. Patient and/or family rg5 updated on plan of care and expected duration. Pain level reassessed. Patient is alert, oriented x 3, equal unlabored respirations, skin warm/dry/pink. 10/23 00:42 Reassessment: Patient and/or family updated on plan of care and expected duration. Pain rg5 level reassessed. Patient is alert, oriented x 3, equal unlabored respirations, skin warm/dry/pink. Patient states feeling better. Vital Signs: 10/22 20:48 BP 190 / 97; Pulse 86; Resp 19 S; Temp 98.1(O); Pulse Ox 95% on R/A; Weight 104.33 kg; ha1 Height 5 ft. 9 in. ; 21:00 BP 163 / 83; Pulse 83; Resp 17; Pulse Ox 95% on R/A; rg5 22:00 BP 138 / 68; Pulse 82; Resp 17; Pulse Ox 95% on R/A; rg5 23:00 BP 143 / 73; Pulse 80; Resp 17; Pulse Ox 97% on R/A; rg5 10/23 00:41 BP 122 / 69; Pulse 86; Resp 16; Temp 97.8(O); Pulse Ox 97% on R/A; rg5 10/22 20:48 Body Mass Index 33.96 (104.33 kg, 175.26 cm) ha1 ED Course: 10/22 20:48 Patient arrived in ED. ra3 20:55 Inserted saline lock: 20 gauge in right antecubital area, using aseptic technique. rv1 Blood collected. Flushed with 10 mL NS. 20:58 Orlando Tariq MD is Attending Physician. bo1 21:00 No provider procedures requiring assistance completed. Patient maintains SpO2 rg5 saturation greater than 95% on room air. 21:00 Patient has correct armband on for positive identification. Client placed on continuous rg5 cardiac and pulse oximetry monitoring. NIBP monitoring applied. quality assurance monitor body on. Pulse ox on. 21:00 Arm band placed on. rg5 21:00 EKG completed in triage. Results shown to MD. rg5 21:02 Triage completed. ha1 21:17 Sam Gaffney, RN is Primary Nurse. rg5 21:47 XRAY Chest (1 view) In Process Unspecified. EDMS 23:49 Timmy Disla is Hospitalizing Provider. bo1 10/23 01:12 Patient admitted, IV remains in place. intact, No redness/swelling at site. rg5 01:12 Provided Education on: needs for admit. rg5 Administered Medications: 10/22 22:27 Drug: Potassium Chloride PO 20 mEq PO once Route: PO; rg5 22:55 Follow up: Response: No adverse reaction rg5 23:00 Drug: Clopidogrel PO 300 mg PO once Route: PO; rg5 10/23 00:13 Follow up: Response: No adverse reaction rg5 10/22 23:20 Drug: Aspirin PO Chewable Tablet 324 mg PO once; 81 mg tablets x 4 Route: PO; rg5 10/23 00:13 Follow up: Response: No adverse reaction rg5 10/22 23:21 Drug: Nitroglycerin Transdermal Ointment 2 % 1 inches Transdermal once Route: rg5 Transdermal; Site: anterior chest wall; Medication: 21:00 VIS not applicable for this client. rg5 Outcome: 23:52 Decision to Hospitalize by Provider. bo1 10/23 01:13 Admitted to ER Hold. Please see [facility] for further documentation. rg5 Condition: stable Instructed on the need for admit, 08:25 Patient left the ED. rs5 Signatures: Dispatcher [employer] EDMS Tara Langley RN RN ha1 Leticia Ca rv1 Kilo Key RN RN rs5 Katrin Velasquez ra3 Orlando Tariq MD MD bo1 Sam Gaffney RN RN rg5
[2024-10-23] MEDS: ATORVASTATIN 40 MG TAB PO SCH (01:30)
[2024-10-23] MEDS ORDERED: NITROGLYCERIN 0.4 MG/TAB SL PRN (01:31)
--- NOTE | 2024-10-23 01:37 | P.HP ---
Certification for Inpatient Patient admitted to: Observation With expected LOS: <2 Midnights Practitioner: I am a practitioner with admitting privileges, knowledge of patient current condition, hospital course, and medical plan of care. Services: Services provided to patient in accordance with Admission requirements found in Title 42 Section 412.3 of the Code of Federal Regulations Patient History Date of Service: 10/23/24 Reason for admission: chest pain History of Present Illness: 64 year old man with a past medical history significant for HTN, HDL, and BPH presented to the emergency department c/o chest pain x 4 days. The patient's family is present at bedside. The patient describes his chest pain as intermittent, substernal, some times with radiation to left shoulder, and of a "heavy" quality. He has attempted to take his home dose of lisinopril, and losartan to improve his chest pain, and reports minimal improvement. Nothing worsens his chest pain. The patient is a never smoker. He denies fvver, cough, chest tightness, and urinary symptoms. Allergies iodine Allergy (Verified 10/04/21 08:16) Lip Swelling morphine Allergy (Verified 10/04/21 08:16) Hallucinations/Itching Home medications list reviewed: Yes Home Medications: Ascorbic Acid [Vitamin C] 500 mg PO DAILY 09/29/21 Cholecalciferol (Vitamin D3) [Vitamin D 5,000 Iu Cap] 5,000 unit PO DAILY 09/29/21 Losartan Potassium 25 mg PO DAILY 09/29/21 Multivitamin 1 each PO DAILY 09/29/21 Zinc 50 mg PO DAILY 09/29/21 Sulfamethoxazole/Trimethoprim [Bactrim Ds Tablet] 1 each PO BID #10 tablet 10/04/21 Tamsulosin HCl [Flomax] 0.4 mg PO DAILY #3 capsule 10/04/21 Tramadol HCl/Acetaminophen [Ultracet Tablet] 1 each PO Q4H PRN #30 tablet 10/04/21 - Past Medical/Surgical History Diabetic: No -: leukemia-in remission -: HTN -: HDL -: BPH -: hernia repair -: left knee sx -: left hand sx - Social History Smoking Status: Never smoker Alcohol use: No Review of Systems Cardiovascular: Chest Pain Physical Examination - Vital Signs Temperature: 97.8 F Blood Pressure: 122/69 Pulse: 88 Respirations: 18 Pulse Ox (%): 100 (room air) - Physical Exam General: Alert, Oriented x3 HEENT: Atraumatic, Normocephalic Neck: JVD not distended Respiratory: Clear to auscultation bilaterally Cardiovascular: No edema, Regular rate/rhythm, No gallops, No rubs, No murmurs Gastrointestinal: Normal bowel sounds, Non-distended, No tenderness Musculoskeletal: No swelling, No erythema, No tenderness, No warmth Neurological: Normal strength at 5/5 x4 extr, Sensation intact - Studies Laboratory Data (last 24 hrs) 10/22/24 10/22/24 21:19 21:19 WBC 4.30 Hgb 15.0 Hct 44.3 Plt Count 175 Sodium 139 Potassium 3.1 L BUN 15 Creatinine 0.92 Glucose 120 H Assessment and Plan - Problems (Diagnosis) (1) Chest pain Current Visit: Yes Status: Acute (2) HTN (hypertension) Current Visit: Yes Status: Acute (3) Dyslipidemia (high LDL; low HDL) Current Visit: Yes Status: Acute (4) BPH (benign prostatic hyperplasia) Current Visit: Yes Status: Acute - Plan Chest pain: Admit for observation Telemetry ordered Cardiology consulted Given ASA, plavix, and nitroglycerin in ED echo ordered HDL: statin ordered BPH: Resumed home medication HTN: Holding home medication for now Will continue to monitor - Advance Directives Does patient have a Living Will: No Does patient have a Durable POA for Healthcare: No
[2024-10-23] MEDS ORDERED: ATORVASTATIN 40 MG TAB ONE (01:57)
[2024-10-23 02:13] VITALS: BMI 34.0
[2024-10-23 07:04] LABS: Albumin 3.2 g/dL (3.4-5.0); Albumin/Globulin Ratio 0.9 (1.1-1.8); Anion Gap 6.9 mEq/L (5.0-15.0); Bilirubin Direct 0.2 mg/dL (0-0.2); Bilirubin Indirect, Calculated 0.8 mg/dL (0.2-0.8); Globulin 3.4 g/dL (2.3-3.5); Magnesium 2.1 mg/dL (1.6-2.4); Phosphorus 2.8 mg/dL (2.5-4.9); Potassium 3.9 mEq/L (3.5-5.1); Protein, Total 6.6 g/dL (6.4-8.2); Thyroid Stimulating Hormone 1.46 uIU/mL (0.358-3.740)
--- NOTE | 2024-10-23 08:55 | P.CNS ---
Date of Consult: 10/23/24 Chief Complaint: chest pain History of Present Illness: Patient with PMH of HTN, family history of premature CAD presented with chest pain pressure in nature across chest, started yesterday while he was doing work, deneis similar symptoms in the past, no other cardiac symptoms. Allergies iodine Allergy (Verified 10/04/21 08:16) Lip Swelling morphine Allergy (Verified 10/04/21 08:16) Hallucinations/Itching Home medications list reviewed: Yes Home Medications: Ascorbic Acid [Vitamin C] 500 mg PO DAILY 09/29/21 Cholecalciferol (Vitamin D3) [Vitamin D 5,000 Iu Cap] 5,000 unit PO DAILY 09/29/21 Losartan Potassium 25 mg PO DAILY 09/29/21 Multivitamin 1 each PO DAILY 09/29/21 Zinc 50 mg PO DAILY 09/29/21 Sulfamethoxazole/Trimethoprim [Bactrim Ds Tablet] 1 each PO BID #10 tablet 10/04/21 Tamsulosin HCl [Flomax] 0.4 mg PO DAILY #3 capsule 10/04/21 Tramadol HCl/Acetaminophen [Ultracet Tablet] 1 each PO Q4H PRN #30 tablet 10/04/21 - Past Medical/Surgical History Diabetic: No -: leukemia-in remission -: HTN -: HDL -: BPH -: hernia repair -: left knee sx -: left hand sx - Social History Alcohol use: No Review of Systems 10-point ROS is otherwise unremarkable Physical Examination Temp Pulse Resp BP Pulse Ox 98 F 70 17 108/65 98 10/23/24 03:51 10/23/24 03:51 10/23/24 03:51 10/23/24 03:51 10/23/24 03:51 General: Alert, In no apparent distress HEENT: Atraumatic, PERRLA, Mucous membr. moist/pink, EOMI, Sclerae nonicteric Neck: Supple, 2+ carotid pulse no bruit, No LAD, Without JVD or thyroid abnormality Respiratory: Clear to auscultation bilaterally, Normal air movement Cardiovascular: Regular rate/rhythm, Normal S1 S2 Gastrointestinal: Normal bowel sounds, No tenderness Musculoskeletal: No tenderness Integumentary: No rashes Neurological: Normal gait, Normal speech, Normal tone, Normal affect Lymphatics: No axilla or inguinal lymphadenopathy Laboratory Data (last 24 hrs) 10/22/24 10/22/24 21:19 21:19 WBC 4.30 Hgb 15.0 Hct 44.3 Plt Count 175 Sodium 139 Potassium 3.1 L BUN 15 Creatinine 0.92 Glucose 120 H - Problems (1) Chest pain Current Visit: Yes Status: Acute Plan: concern for unstable angina NPO for coronary angiogram ASA 81 mg daily Lipitor 40 mg daily (2) Dyslipidemia (high LDL; low HDL) Current Visit: Yes Status: Acute Plan: lipitor 40 mg daily (3) HTN (hypertension) Current Visit: Yes Status: Acute Plan: patient is on lisinopril 10 mg daily, monitor BP.
[2024-10-23] MEDS: HEPARIN 5000 UNIT/ML 1 ML VIAL SQ SCH (09:00)
[2024-10-23] MEDS ORDERED: HEPARIN 10,000 UNIT/10 ML VIAL IV ONE (09:02)
[2024-10-23] MEDS ORDERED: HEPA 1000U/500MLS 2,000 UNIT/1,000 ML BAG IV ONE (09:02)
[2024-10-23] MEDS ORDERED: LIDOCAINE 1% 20 ML MDV ONE (09:02)
[2024-10-23] MEDS ORDERED: MIDAZOLAM HCL 2 MG/2 ML INJ ONE (09:03)
[2024-10-23] MEDS ORDERED: HEPARIN 5000 UNIT/ML 1 ML VIAL ONE (09:03)
[2024-10-23] MEDS ORDERED: ATROPINE SULF 1 MG/10 ML SYR IV ONE (09:03)
[2024-10-23] MEDS ORDERED: CLOPIDOGREL 75 MG TABLET ONE (09:03)
[2024-10-23] MEDS ORDERED: TICAGRELOR 90 MG TABLET PO ONE ×2 (09:04→10:31)
[2024-10-23] MEDS ORDERED: ASPIRIN 325 MG TAB ONE (09:04)
[2024-10-23] MEDS ORDERED: FENTANYL CITR 100 MCG/2 ML ONE (09:04)
[2024-10-23] MEDS ORDERED: METHYLPREDNISOLONE 125 MG INJ ONE (09:05)
[2024-10-23] MEDS ORDERED: DIPHENHYDRAMINE 50 MG/ML VIAL ONE (09:05)
[2024-10-23] MEDS ORDERED: NA CHLORIDE 0.9% 500 ML ONE ×2 (09:27→10:36)
[2024-10-23] MEDS ORDERED: Phenylephrine HCl 10 MG/ML 1 ML VIAL ONE (10:17)
--- NOTE | 2024-10-23 11:32 | EKG ---
Test Date: 2024-10-22 Test Time: 20:52:22 Non Cdl Driver: BALJINDER MEASUREMENT RESULTS: Intervals: Rate: 90 MI: 132 QRSD: 92 QT: 376 QTc: 459 Odon: P: 62 MI: 132 QRS: 54 T: 45 INTERPRETIVE STATEMENTS: Normal sinus rhythm Incomplete right bundle branch block Nonspecific ST and T wave abnormality Abnormal ECG Compared to ECG 09/29/2021 08:11:29 Incomplete right bundle-branch block now present ST (T wave) deviation now present T-wave abnormality no longer present Electronically Signed On 10-23-24 11:30:52 STRUCTURAL MANAGER by Yefri Baca
--- NOTE | 2024-10-23 14:50 | OP ---
Date of Procedure: 10/23/2024 Surgeon: Yefri Baca Procedures Performed: 1.Left heart catheterization. 2.Selective coronary angiogram. 3.PCI of the LAD with Synergy 3.0 x 48 and 2.5 x 8 mm drug-eluting stents. Indication For Procedures: Unstable angina. Complications: None. Estimated Blood Loss: Less than 50 cc. Access: Right radial, closed by TR band. Sedation Time: 30 minutes with 2 of Versed and 75 of fentanyl. Description Of Procedure: After risks, and benefits, and alternatives were explained to the patient, patient agreed to proceed with procedure and signed informed consent. The patient was brought back to the bolt labeler, prepped and draped in sterile fashion. Time-out was performed. Sedation was admini stered. Next, the right radial access was obtained using an ultrasound-guided micropuncture techniqu e. A 5-Hungarian Sunset 4.0 catheter was advanced to the LV cavity. LVEDP was obtained. Pullback did n ot show any gradient. Same catheter was used for selective angiogram of the left and right coronary systems. That catheter was later exchanged for an XB LAD 3.0 mm guide. Heparin was administered. A CT was therapeutic. Runthrough wire was passed across the lesion, pre-dilated with an NC 2.5 mm ball oon. Next, a Synergy 3.0 x 48 mm drug-eluting stent was placed across the lesion. A repeat angiogra m shows distal edge disease, so another Synergy 2.5 x 8 mm drug-eluting stent was placed distal to th e stent overlapped with the mid LAD stent. That is postdilated with a 3.5 mm NC balloon. Final reese ogram shows JORY-3 flow. The wire was removed. Catheter was removed over a J-wire. Sheath was audi tom. TR band was applied. Hemostasis was achieved, and the patient was moved back to Recovery in st able condition. Findings: 1.Left main normal. 2.LAD; diffuse atherosclerosis with mid 70% to 99% disease, status post PCI with Synergy 3.0 x 48 an d overlapped with Synergy 2.5 x 8 mm drug-eluting stents, distal mild luminal irregularities. 3.Left circ; mild luminal irregularities. 4.RCA; dominant diffuse mild luminal irregularities. 5.LVEDP 4 mmHg. Assessment And Plan: Significant mid LAD disease, status post PCI with Synergy 3.0 x 48 mm drug-elut ing stent, this overlapped with another 2.5 x 8 mm drug-eluting stent distally. Plan will be: 1.Aspirin 81 mg daily for life. 2.Brilinta 180 x1 was given in the bolt labeler. To continue Brilinta 90 mg p.o. b.i.d. for 12 months. 3.Continue aggressive medical treatment for CAD. COREY/CAROLYNE Voice ID: [id number] Report ID: [id number]
[2024-10-23] MEDS: TAMSULOSIN 0.4 MG SR CAP PO SCH (15:52)
[2024-10-23 17:04] LABS: Specific Gravity 1.017 (1.005-1.030); Sqamous Epithelial None Seen /HPF (None Seen); Urine Bacteria None Seen /HPF (<20); Urine Bilirubin NEGATIVE (Negative); Urine Blood Negative (Negative); Urine Clarity Clear (Clear); Urine Color Colorless (Yellow); Urine Culture Reflex Order NOT NEEDED; Urine Glucose 3+ (Negative); Urine Ketones NEGATIVE (Negative); Urine Microscopic Reflex YN ORDER UMIC; Urine Nitrite NEGATIVE (Negative); Urine Protein NEGATIVE (Negative); Urine RBC <5 /HPF (None Seen); Urine Urobilinogen Normal (Normal); Urine WBC None Seen /HPF (<5); Urine pH 6.5 (5.0-7.0)
[2024-10-23] MEDS: TICAGRELOR 90 MG TABLET PO SCH (20:34)
[2024-10-24 06:41] LABS: Troponin High Sensitivity 4795.8 pg/mL (<58.9)
[2024-10-24 07:06] LABS: Anion Gap 10.5 mEq/L (5.0-15.0); Potassium 3.5 mEq/L (3.5-5.1)
--- NOTE | 2024-10-24 07:18 | RAD REPORT ---
EXAM: Chest Single View HISTORY: pneumonia COMPARISON: 10/22/2024 FINDINGS: LUNGS/PLEURA: The lungs are clear. No pleural effusions or pneumothorax. No pulmonary edema. MEDIASTINUM: The mediastinal silhouette is within normal limits. CARDIAC: The cardiac silhouette is within normal limits. UPPER ABDOMEN: No significant abnormality. BONES: No acute fracture. LINES/TUBES/OTHER: N/A IMPRESSION: No evidence of acute cardiopulmonary disease.
[2024-10-24 07:20] LABS: Absolute Lymphocytes (CBC) 1.4 K/uL (0.7-4.9); Absolute Monocytes 1.4 K/uL (0.1-1.3); Absolute Neutrophil 11.6 K/uL (1.8-8.0); Basophils % 0.2 % (0-1.3); Eosinophils % 0.1 % (0-4.4); Hemoglobin 15.1 g/dL (13.6-17.9); Lymphocytes % 9.4 % (15.3-44.8); MCH 30.4 pg (27.0-35.0); MCHC 32.8 g/dL (32.0-36.0); MCV 92.7 fL (80-100); MPV 7.7 fL (7.6-11.3); Monocytes % 9.7 % (3.3-12.3); Neutrophils % 80.6 % (41.7-73.7); Platelets 205 thou/uL (152-406); RBC Red Blood Cell Count 4.96 M/uL (4.33-5.43); Red Cell Distribution Width 13.3 % (12.1-15.2)
[2024-10-24] MEDS: POTASSIUM CL SA 10 MEQ TAB PO ONE (08:32)
[2024-10-24] MEDS: ASPIRIN 81 MG CHEWABLE TABLET PO SCH (08:32)
[2024-10-24 08:50] VITALS: O2SAT 100
[2024-10-24] MEDS: METOPROLOL TAR 25 MG TAB PO ONE (12:34)
[2024-10-24 12:37] VITALS: BP 141/81
[2024-10-24 12:41] VITALS: TEMP 98
== END 2024-10-24 15:10 | disposition home or self-care (01) ==
LOC: ER 20:41 → ERHOLD 10-23 01:26 → 4TH 10-23 07:38
PROVIDERS: ADMIT Hospitalist; ATTEND Hospitalist
PROC: 027035Z Dilation of Coronary Artery, One Artery with Two Drug-eluting Intraluminal Devices, Percutaneous Approach (ICD-10-PCS; principal; 2024-10-23)
PROC: 4A023N7 Measurement of Cardiac Sampling and Pressure, Left Heart, Percutaneous Approach (ICD-10-PCS; 2024-10-23)
PROC: B2111ZZ Fluoroscopy of Multiple Coronary Arteries using Low Osmolar Contrast (ICD-10-PCS; 2024-10-23)
DX: I25.110 Atherosclerotic heart disease of native coronary artery with unstable angina pectoris (principal); I45.10 Unspecified right bundle-branch block; I10 Essential (primary) hypertension; E78.5 Hyperlipidemia, unspecified; N40.0 Benign prostatic hyperplasia without lower urinary tract symptoms; C95.91 Leukemia, unspecified, in remission; Z79.899 Other long term (current) drug therapy; Z88.5 Allergy status to narcotic agent; Z91.041 Radiographic dye allergy status; Z82.49 Family history of ischemic heart disease and other diseases of the circulatory system
CPT/HCPCS: 93005 ×2; 85025 ×2; 81001; 80048 ×2; 36415 ×2; 83735; 82550; 84100; 80061; 83605; 84443; 82248; 84484 ×3; 80053; 83880 ×2; 71045 ×2; 92928; 93458; 76937; 99285; C1893; Q9967; C1725; C1877; J1644; J2003; J1200; J2250; J3010; J2919; G0378 ×5; J7040 ×2; 99152; 99153; J0461; J2371